=== PATIENT | female | born 1950 | race Caucasian/White ===

== ENCOUNTER 2024-11-29 03:41 | Inpatient (IN) | payer OTHER ==
[2024-11-29] MEDS ORDERED: DIAZEPAM 10 MG/2 ML INJ SYRINGE ONE (04:41)
[2024-11-29 04:48] LABS: Absolute Eosinophils 0.2 K/uL (0-0.5); Absolute Lymphocytes (CBC) 1.4 K/uL (0.7-4.9); Absolute Monocytes 0.7 K/uL (0.1-1.3); Absolute Neutrophil 5.7 K/uL (1.8-8.0); Basophils % 0.5 % (0-1.3); Eosinophils % 1.9 % (0-4.4); Hematocrit 41.7 % (36.0-45.0); Hemoglobin 14.6 g/dL (12.0-15.0); Lymphocytes % 17.6 % (15.3-44.8); MCH 30.5 pg (27.0-35.0); MCHC 34.9 g/dL (32.0-36.0); MCV 87.3 fL (80-100); Monocytes % 9.1 % (3.3-12.3); Neutrophils % 70.9 % (41.7-73.7); Nucleated RBC Absolute Count 0.1 (0-0); Nucleated Red Blood Cells % 0.8 % (0-0); Platelets 189 thou/uL (152-406); RBC Red Blood Cell Count 4.78 M/uL (3.86-4.86); Red Cell Distribution Width 13.6 % (12.1-15.2)
[2024-11-29 05:06] LABS: Anion Gap 8.8 mEq/L (5.0-15.0); Potassium 3.8 mEq/L (3.5-5.1)
[2024-11-29 05:12] LABS: Troponin High Sensitivity 65.3 pg/mL (<58.9)
[2024-11-29] MEDS ORDERED: KETOROLAC 30 MG/ML INJ ONE (05:31)
[2024-11-29 06:17] LABS: Specific Gravity 1.008 (1.005-1.030); Sqamous Epithelial <5 /HPF (None Seen); Urine Bacteria <20 /HPF (<20); Urine Bilirubin NEGATIVE (Negative); Urine Blood Negative (Negative); Urine Clarity Clear (Clear); Urine Color Colorless (Yellow); Urine Culture Reflex Order NOT NEEDED; Urine Glucose NEGATIVE (Negative); Urine Ketones NEGATIVE (Negative); Urine Micro Reflex YN NO BILL MICROSCOPIC; Urine Nitrite NEGATIVE (Negative); Urine Protein NEGATIVE (Negative); Urine RBC <5 /HPF (None Seen); Urine Urobilinogen Normal (Normal); Urine WBC <5 /HPF (<5)
--- NOTE | 2024-11-29 06:56 | RAD REPORT ---
EXAMINATION: CT HEAD WITHOUT CONTRAST CLINICAL INDICATION: Female, 74 years old.ams TECHNIQUE: Axial CT images from the skull base to the vertex without intravenous contrast. Coronal an d sagittal reformatted images were created from the data set. One or more of the following dose reduction techniques were used: Automated exposure control, adjustment of the mA and/or kV according to patient size, and/or iterative reconstruction. Unless otherwise specified, incidental findings do not require dedicated imaging follow-up. [id number]. COMPARISON: 05/20/2020 MRI FINDINGS: INTRACRANIAL: No acute intracranial hemorrhage. No hydrocephalus. No mass effect or midline shift. Mi ld chronic small vessel ischemic changes.Mild cerebral atrophy. VASCULATURE: No visualized abnormalities in the arteries or dural venous sinuses. SCALP/SKULL: No significant soft tissue or osseous abnormalities. SINUSES: The visualized paranasal sinuses and mastoid air cells are predominantly clear. IMPRESSION: No acute intracranial abnormality.
--- NOTE | 2024-11-29 06:59 | ER ---
Nurse's Notes [facility] Name: Yolanda Linda Age: 74 yrs Sex: Female : 1950 Arrival Date: 11/29/2024 Time: 03:41 Bed 7 Private MD: Diagnosis: Troponin Elevation, Increased Spasms Presentation: 11/29 03:50 Chief complaint: Spouse and/or significant other states: loss her balance, has a right vc1 earache, right eye swollen. Chief complaint: Spouse and/or significant other states: She has parkinsons and had the tremors then overnight she started having uncontrollable movement. Coronavirus screen: Client denies travel out of the [place] in the last 14 days. At this time, the client does not indicate any symptoms associated with coronavirus-19. Ebola Screen: Patient negative for fever greater than or equal to 101.5 degrees Fahrenheit, and additional compatible Ebola Virus Disease symptoms Patient denies exposure to infectious person. Patient denies travel to an Ebola-affected area in the 21 days before illness onset. No symptoms or risks identified at this time. Initial Sepsis Screen: Does the patient meet any 2 criteria? No. Patient's initial sepsis screen is negative. Does the patient have a suspected source of infection? No. Patient's initial sepsis screen is negative. Risk Assessment: Do you want to hurt yourself or someone else?. Onset of symptoms was November 28, 2024. 03:50 Method Of Arrival: Ambulatory vc1 03:50 Acuity: JR 3 vc1 Triage Assessment: 09:36 Headache History: Other N/A. General: Appears in no apparent distress. Pain: Quality of iw pain is described as Also complains of no other associated symptoms. Historical: - Allergies: 03:53 Codeine; vc1 - Home Meds: 03:53 methocarbamol 500 mg oral tablet bid [Active]; carbidopa-levodopa 25-100 mg Oral tablet vc1 3 times per day [Active]; Rytary 61.25-245 mg oral capsule, extended release 2 caps 3 times per day [Active]; Pepcid AC 10 mg Oral tablet daily [Active]; - PMHx: 03:53 Parkinson's disease; vc1 - Immunization history:: Client reports having NOT received the Covid vaccine. Flu vaccine is not up to date. - Infectious Disease History:: Denies. - Social history:: Smoking status: Patient denies any tobacco usage or history of. Screenin:57 [facility] ED Fall Risk Assessment (Adult) History of falling in the last 3 months, vc1 including since admission No falls in past 3 months (0 pts) Confusion or Disorientation No (0 pts) Intoxicated or Sedated No (0 pts) Impaired Gait Yes (1 pt) Mobility Assist Device Used Yes (1 pt) Altered Elimination No (0 pt) Score/Fall Risk Level 3 or more points = High Risk Oriented to surroundings, Maintained a safe environment, Educated pt \T\ family on fall prevention, incl call for assistance when getting out of bed, Hourly rounding (assess needs \T\ fall precautionary measures) done, Offered frequent toileting (1:1 observation), Remained with patient while ambulating. Abuse screen: Denies threats or abuse. Nutritional screening: No deficits noted. Tuberculosis screening: No symptoms or risk factors identified. Assessment: 04:15 General: Appears uncomfortable, well groomed, Behavior is cooperative, Sporadic dd2 movements of BUE and head. Pain: Complains of pain in Head, Rt eye and Rt ear Pain does not radiate. Pain currently is 9 out of 10 on a pain scale. Neuro: Warren Agitation-Sedation Scale (RASS): +1 Restless Level of Consciousness is awake, alert, obeys commands, Oriented to person, place, time, situation, Truck Spotter are equal bilaterally Speech is normal, Pupils are PERRLA, Sporadic movements BUE and head. Reports headache in entire increase in spasms to arms . Neuro: Reports dizziness. Cardiovascular: Heart tones S1 S2 present Patient's skin is warm and dry. Respiratory: Airway is patent Respiratory effort is even, unlabored, Respiratory pattern is regular, symmetrical, Breath sounds are clear bilaterally. GI: Abdomen is non-distended, Bowel sounds present X 4 quads. Abd is soft and non tender X 4 quads. Parent/caregiver reports the patient having intolerance of food. : No signs and/or symptoms were reported regarding the genitourinary system. EENT: Reports pain in right eye, Rt ear. Derm: No deficits noted. No signs and/or symptoms reported regarding the dermatologic system. Musculoskeletal: Range of motion: intact in all extremities, sporadic movements to BUE, head Reports increased in spasms BUE and head. 07:37 Reassessment:. General: Appears in no apparent distress. Behavior is calm, cooperative, iw restless. Neuro: Level of Consciousness is awake, alert, obeys commands, Oriented to person, place, time, situation, Truck Spotter are equal bilaterally Moves all extremities. Speech is normal, Reports jerking movements in her extremities . Cardiovascular: Capillary refill < 3 seconds in bilateral fingers Patient's skin is warm and dry. Respiratory: Respiratory effort is even, unlabored, Respiratory pattern is regular, symmetrical. GI: Abdomen is non-distended, Abd is soft and non tender X 4 quads. Derm: Skin is intact, is healthy with good turgor, Skin is pink, warm \T\ dry. normal. Musculoskeletal: Range of motion: intact in all extremities. Vital Signs: 03:50 Weight 81.65 kg; Height 5 ft. 1 in. ; Pain 5/10; vc1 04:00 BP 110 / 93; Pulse 66; Resp 18; Temp 97.2; Pulse Ox 96% ; vc1 05:17 BP 122 / 84; Pulse 66; Resp 16; Pulse Ox 96% on R/A; dd2 07:30 BP 171 / 81; Pulse 64; Resp 18; Temp 97.6; Pulse Ox 97% on R/A; iw 03:50 Body Mass Index 34.01 (81.65 kg, 154.94 cm) vc1 03:50 Pain Scale: Adult vc1 Loretta Coma Score: 04:15 Eye Response: spontaneous(4). Motor Response: obeys commands(6). Verbal Response: dd2 oriented(5). Total: 15. ED Course: 03:44 Patient arrived in ED. [id number] 03:53 Triage completed. vc1 03:57 Arm band placed on left wrist. vc1 03:58 Lew Jane MD is Attending Physician. ec2 04:15 Patient has correct armband on for positive identification. Bed in low position. Call dd2 light in reach. Side rails up X2. Seizure precautions initiated. Client placed on continuous cardiac and pulse oximetry monitoring. NIBP monitoring applied. auto job estimator on. Door closed. Noise minimized. Warm blanket given. Pillow given. Verbal reassurance given. 04:36 No provider procedures requiring assistance completed. Initial lab(s) drawn, by me, dd2 sent to lab. EKG done, by ED staff, reviewed by Lew Jane MD. Inserted saline lock: 20 gauge in right antecubital area, using aseptic technique. Blood collected. Flushed with 10 mL NS. Patient maintains SpO2 saturation greater than 95% on room air. 04:51 CT Head Brain wo Cont In Process Unspecified. EDMS 05:05 MIKAEL CUETO, RN is Primary Nurse. dd2 06:58 Sina Rebolledo MD is Hospitalizing Provider. ec2 06:58 Report given to Angelika RN's. bm8 07:39 Primary Nurse role handed off by MIKAEL CUETO RN iw 07:39 Dayna Weeks RN is Primary Nurse. iw 07:39 Client placed on continuous cardiac and pulse oximetry monitoring. NIBP monitoring iw applied. auto job estimator on. Lights dimmed. Warm blanket given. Pillow given. Head of bed elevated. 08:08 Repeat lab(s) drawn. by me, sent to lab. em1 Administered Medications: 04:44 Drug: Diazepam IVP 5 mg IVP once Route: IVP; Site: right antecubital; dd2 04:59 Follow up: Response: No adverse reaction dd2 05:32 Drug: Ketorolac IVP 15 mg IVP once Route: IVP; Site: right antecubital; dd2 05:47 Follow up: Response: No adverse reaction dd2 Medication: 04:15 VIS not applicable for this client. dd2 Outcome: 06:58 Decision to Hospitalize by Provider. ec2 09:35 Admitted to Med/surg accompanied by tech, via stretcher, with chart, Report called to enoch Nicholas RN 09:35 Condition: good 09:35 Discharge instructions given to patient, family, Instructed on the need for admit, Demonstrated understanding of instructions, 09:36 Patient left the ED. iw Signatures: Dispatcher [employer] EDMI Dayna Weeks, Lenny Kathleen RN em1 Vera Rodriguez6 Sridevi Paredes RN RN 1 Lew Jane MD MD ec2 Israel Anthony, PHAN RN bm8 MIKAEL CUETO RN RN dd2 Corrections: (The following items were deleted from the chart) 03:57 03:53 PMHx: High Cholesterol; vc1 vc1 03:57 03:53 PMHx: Hypertension; vc1 vc1 05:17 04:15 Pain: Complains of pain in Head, eye and Lt ear Pain does not radiate. Pain dd2 currently is 9 out of 10 on a pain scale. dd2 05:17 04:15 EENT: Reports pain in right eye, left ear and left eye dd2 dd2
--- NOTE | 2024-11-29 06:59 | EDPHYS ---
Physician Documentation [facility] Name: Yolanda Linda Age: 74 yrs Sex: Female : 1950 Arrival Date: 11/29/2024 Time: 03:41 Bed 7 Private MD: ED Physician Lew Jane HPI: 11/29 04:15 This 74 yrs old Female presents to ER via Ambulatory with complaints of ec2 increased spasms. 04:15 Patient arrives today for evaluation of increased tremors and neuro excitement. Patient ec2 with history of parkinsonism has baseline tremors and irregular movements, has been having increased in her regular movements which is what prompted evaluation. No recent falls injuries or trauma. Patient reports some increased urinary frequency. No diarrhea symptoms. Denies any cough and cold symptoms.. Historical: - Allergies: 03:53 Codeine; vc1 - Home Meds: 03:53 methocarbamol 500 mg oral tablet bid [Active]; carbidopa-levodopa 25-100 mg Oral tablet vc1 3 times per day [Active]; Rytary 61.25-245 mg oral capsule, extended release 2 caps 3 times per day [Active]; Pepcid AC 10 mg Oral tablet daily [Active]; - PMHx: 03:53 Parkinson's disease; vc1 - Immunization history:: Client reports having NOT received the Covid vaccine. Flu vaccine is not up to date. - Infectious Disease History:: Denies. - Social history:: Smoking status: Patient denies any tobacco usage or history of. ROS: 04:33 Constitutional: as per hpi ec2 Exam: 04:16 Constitutional: GEN: NAD Head: atraumatic Eyes: EOMI Ears: External ears are ec2 normal. CV: regular rate LUNGS: no respiratory distress ABD: non-distended SKIN: no evidence of rashes MSK: no evidence of trauma. Neuro: Irregular choreiform movements noted. Vital Signs: 03:50 Weight 81.65 kg; Height 5 ft. 1 in. ; Pain 5/10; vc1 04:00 BP 110 / 93; Pulse 66; Resp 18; Temp 97.2; Pulse Ox 96% ; vc1 05:17 BP 122 / 84; Pulse 66; Resp 16; Pulse Ox 96% on R/A; dd2 07:30 BP 171 / 81; Pulse 64; Resp 18; Temp 97.6; Pulse Ox 97% on R/A; iw 03:50 Body Mass Index 34.01 (81.65 kg, 154.94 cm) vc1 03:50 Pain Scale: Adult vc1 Loretta Coma Score: 04:15 Eye Response: spontaneous(4). Motor Response: obeys commands(6). Verbal Response: dd2 oriented(5). Total: 15. MDM: 04:09 Medical Screening Exam initiated ec2 04:16 Data reviewed: vital signs, nurses notes. ED course: Patient arrives today for ec2 increasing irregular movements. Examination yields frequent irregular movements is otherwise in no acute distress. Will obtain lab work, check imaging, urine studies. Differential clued UTI, electrolyte disturbances, anemia, intracranial mass. Additionally considered progression of patient's known parkinsonism.. 04:33 ED course: EKG independently reviewed and interpreted by me, motion artifact ec2 appreciated, normal sinus rhythm, rate of 64, no acute ST segment elevations, intervals are nonactionable.. 06:56 ED course: CT scan of the head shows no acute intracranial normality. . ec2 06:57 ED course: Patient with newly elevated troponin, increased restlessness and spasticity, ec2 will admit for further cardiac workup. Discussed with hospitalist, pending admission.. 11/29 04:12 Order name: Basic Metabolic Panel; Complete Time: 05:26 ec2 11/29 04:12 Order name: CBC with Diff; Complete Time: 05:10 ec2 11/29 04:12 Order name: Troponin HS; Complete Time: 05:26 ec2 11/29 04:12 Order name: UAM; Complete Time: 06:20 ec2 11/29 04:17 Order name: Glucose, Ancillary Testing; Complete Time: 04:46 EDMS 11/29 07:53 Order name: Urinalysis w/ reflexes EDMS 11/29 07:53 Order name: Basic Metabolic Panel EDMS 11/29 07:53 Order name: Basic Metabolic Panel EDMS 11/29 07:53 Order name: Basic Metabolic Panel EDMS 11/29 07:53 Order name: Basic Metabolic Panel EDMS 11/29 07:53 Order name: CBC with Automated Diff EDMS 11/29 07:53 Order name: CBC with Automated Diff EDMS 11/29 07:53 Order name: CBC with Automated Diff EDMS 11/29 07:53 Order name: CBC with Automated Diff EDMS 11/29 07:53 Order name: Magnesium EDMS 11/29 07:53 Order name: Magnesium EDMS 11/29 07:53 Order name: Magnesium EDMS 11/29 07:53 Order name: Magnesium EDMS 11/29 07:53 Order name: NT PRO-BNP EDMS 11/29 07:53 Order name: NT PRO-BNP EDMS 11/29 07:53 Order name: Troponin High Sensitivity EDMS 11/29 07:53 Order name: Troponin High Sensitivity EDMS 11/29 07:53 Order name: Troponin High Sensitivity EDMS 11/29 07:53 Order name: Troponin High Sensitivity EDMS 11/29 04:12 Order name: CT Head Brain wo Cont; Complete Time: 06:56 ec2 11/29 04:12 Order name: Cardiac monitoring; Complete Time: 04:30 ec2 11/29 04:12 Order name: EKG - Nurse/Tech; Complete Time: 04:31 ec2 11/29 04:12 Order name: IV Saline Lock; Complete Time: 04:35 ec2 11/29 04:12 Order name: Labs collected and sent; Complete Time: 04:35 ec2 11/29 04:12 Order name: O2 Per Protocol; Complete Time: 04:31 ec2 11/29 04:12 Order name: O2 Sat Monitoring; Complete Time: 04:31 ec2 11/29 04:12 Order name: Cath; Complete Time: 05:29 ec2 Administered Medications: 04:44 Drug: Diazepam IVP 5 mg IVP once Route: IVP; Site: right antecubital; dd2 04:59 Follow up: Response: No adverse reaction dd2 05:32 Drug: Ketorolac IVP 15 mg IVP once Route: IVP; Site: right antecubital; dd2 05:47 Follow up: Response: No adverse reaction dd2 Disposition Summary: 11/29/24 06:58 Hospitalization Ordered Notes: Hospitalization Status: Inpatient Admission ec2 Provider: Sina Rebolledo ec2 Location: Telemetry/MedSurg (Inpatient) ec2 Condition: Stable ec2 Problem: an ongoing problem ec2 Symptoms: are unchanged ec2 Bed/Room Type: Standard ec2 Room Assignment: 411(11/29/24 09:02) iw Diagnosis - Troponin Elevation, Increased Spasms ec2 Forms: - Medication Reconciliation Form ec2 - SBAR form ec2 - Leadership Thank You Letter ec2 Signatures: Dispatcher [employer] Dayna Li, PHAN RN iw Lisa Sanchez Vanessa, RN RN vc1 Lew Jane MD MD ec2 MIKAEL CUETO RN RN dd2 Corrections: (The following items were deleted from the chart) 03:57 03:53 PMHx: High Cholesterol; vc1 vc1 03:57 03:53 PMHx: Hypertension; vc1 vc1 04:13 04:13 Head Brain Wo Cont+CT.RAD.BRZ ordered. EDMS EDMS 08:46 06:58 ec2 eb 09:02 08:46 414 eb iw
--- NOTE | 2024-11-29 07:48 | P.HP ---
Certification for Inpatient Patient admitted to: Inpatient With expected LOS: <2 Midnights <Kortney Lora - Last Filed: 11/29/24 09:14> Patient History Date of Service: 11/29/24 Reason for admission: Elevated troponin, Parkinson's with increased tremor History of Present Illness: 74-year-old female with a past medical history of, Parkinson's, hypertension, hyperlipidemia, PCI x 3, nephrectomy, presents to the emergency room with increased tremors. She reports visiting family from [place], has had increased tremors, worse over the last 24 hours. She reports medication compliance, reports chronic right shoulder pain, she reports difficulty sleeping that is chronic. She reports associated unsteady gait. Normally independent with a cane as baseline. She reported yesterday she had mild right jaw pain, she denied chest pain, shortness of breath, had noted elevated troponin 65.3, 64.3, on ER evaluation ER EKG rate [address] changes. she denies fall, fever, recent infection, chest pain, abdominal pain, fever, nausea vomiting, dizziness plan to admit for elevated troponin, Parkinson's with increase tremors unsteady gait with neurology to consult. - Past Medical/Surgical History Diabetic: No -: Parkinson's -: Hypertension -: Hyperlipidemia -: left nephrectomy -: append -: left hand sx - Social History Smoking Status: Never smoker Alcohol use: No CD- Drugs: No Caffeine use: Yes <Kortney Lora - Last Filed: 11/29/24 09:14> Date of Service: 11/29/24 <Sina Rebolledo - Last Filed: 11/30/24 00:57> Allergies codeine [Codeine] Allergy (Mild, Verified 02/18/12 16:39) Nausea/Vomiting Home Medications: Carbidopa/Levodopa [Carbidopa-Levo ER 25-100 Tab] 1 tab PO TID 11/29/24 Carbidopa/Levodopa [Rytary ER 61.25 mg-245 mg Cap] 2 tab PO TID 11/29/24 Famotidine/Ca Carb/Mag Hydrox [Pepcid Complete Tablet Chew] 1 tab PO DAILY 11/29/24 methocarbamoL [Methocarbamol] 1 tab PO BID 11/29/24 Review of Systems 10-point ROS is otherwise unremarkable <Kortney Lora - Last Filed: 11/29/24 09:14> Physical Examination - Physical Exam General: Alert, In no apparent distress, Oriented x3 HEENT: Atraumatic, Normocephalic, PERRLA Neck: 2+ carotid pulse no bruit, JVD not distended Respiratory: Clear to auscultation bilaterally, Normal air movement Cardiovascular: Normal pulses, Regular rate/rhythm, Normal S1 S2 Capillary refill: <2 Seconds Gastrointestinal: Normal bowel sounds, Soft and benign Musculoskeletal: No swelling, No contractures, Other (Right shoulder tenderness to palpitation) Integumentary: No breakdown, No significant lesion Neurological: Normal speech, Other (Parkinsonian tremors,), Abnormal gait, Abnormal strength - Studies Laboratory Data (last 24 hrs) 11/29/24 11/29/24 04:30 04:30 WBC 8.10 Hgb 14.6 Hct 41.7 Plt Count 189 Sodium 141 Potassium 3.8 BUN 16 Creatinine 0.83 Glucose 101 <Kortney Lora - Last Filed: 11/29/24 09:14> - Studies Laboratory Data (last 24 hrs) 11/29/24 11/29/24 04:30 04:30 WBC 8.10 Hgb 14.6 Hct 41.7 Plt Count 189 Sodium 141 Potassium 3.8 BUN 16 Creatinine 0.83 Glucose 101 <Sina Rebolledo - Last Filed: 11/30/24 00:57> Assessment and Plan - Problems (Diagnosis) (1) Elevated troponin Current Visit: Yes Status: Acute (2) Parkinsonian tremor Current Visit: Yes Status: Acute (3) Muscle spasticity Current Visit: Yes Status: Acute (4) Gait disturbance Current Visit: Yes Status: Acute (5) Right shoulder pain Current Visit: Yes Status: Acute Qualifiers: Chronicity: acute Qualified Code(s): M25.511 - Pain in right shoulder (6) HTN (hypertension) Current Visit: No Status: Acute Qualifiers: Hypertension type: essential hypertension (7) Hyperlipidemia Current Visit: No Status: Acute Qualifiers: Hyperlipidemia type: unspecified Qualified Code(s): E78.5 - Hyperlipidemia, unspecified - Plan Assessment plan Parkinson's with tremors Unsteady gait Sleep disturbance Neurology consult, padded rails Resume home Parkinson's meds, sleep aid PT eval for unsteady gait Fall precaution Soft diet Elevated troponin Hypertension Hyperlipidemia History of PCI Telemetry Resume home meds Trend cardiac enzymes Chest x-ray, shoulder x-ray UA, trend cultures Right shoulder pain Shoulder x-ray, Lidocaine patch Full code DVT Lovenox Diet soft Disposition Home with home health Discharge Plan: Home - Advance Directives Does patient have a Living Will: No Does patient have a Durable POA for Healthcare: No - Code Status/Comfort Care Code Status: Full Code Critical Care: No Time Spent Managing Pts Care (In Minutes): 55 <Kortney Lora - Last Filed: 11/29/24 09:14> Date of Service: 11/29/24 Patient was seen and examined. Events of the last 24 hours have been noted. Spoke with with YURY regarding patient's clinical picture after evaluating and examining the patient independently. I performed a substantial part of the MDM during this patient's care today. I personally made or approved the documented management plan and acknowledge its risk of complications. I agree with the findings and documentation provided in the YURY's notes. Patient is a 74-year-old female who is with her visiting from [facility]. Patient has a Parkinson's physician in [facility]. Patient was doing well and uses a cane to get around. However, patient was not able to get out of bed and was really weak. Patient's called EMS and patient was brought into the ER. Patient looks to be doing better. She feels a little better. Will get physical therapy evaluation. Neurology was consulted. Increase dose of carbo levodopa. Will check for additional etiologies of myopathy. <Sina Rebolledo - Last Filed: 11/30/24 00:57>
[2024-11-29] MEDS ORDERED: ONDANSETRON 4 MG/2 ML VIAL IV PRN (07:49)
[2024-11-29] MEDS ORDERED: ALPRAZOLAM 0.25 MG TABLET PO PRN (07:49)
[2024-11-29] MEDS ORDERED: ACETAMINOPHEN 500 MG TAB PO PRN (07:49)
[2024-11-29] MEDS ORDERED: CARBIDOPA/LEVODOPA 25/100 TAB PO SCH (09:00)
[2024-11-29] MEDS ORDERED: METOPROLOL TAR 25 MG TAB PO SCH (09:00)
[2024-11-29 09:47] VITALS: O2SAT 97
[2024-11-29] MEDS: LIDOCAINE 4% PATCH TOP SCH (10:57)
[2024-11-29] MEDS: CARBIDOPA/LEVODOPA 25/100 TAB PO SCH (10:57)
[2024-11-29 11:15] VITALS: BMI 34.0
[2024-11-29] MEDS ORDERED: MAGNESIUM CITRATE 300 ML BOT PO PRN (15:06)
[2024-11-29] MEDS: METHYLPREDNISOLONE 125 MG INJ IV ONE ×2 (15:07→16:24)
[2024-11-29] MEDS: ENOXAPARIN 40 MG/0.4 ML SQ SCH (16:24)
[2024-11-29] MEDS: LEVODOPA PO SCH (16:40)
[2024-11-29] MEDS: CARBIDOPA PO SCH (16:40)
--- NOTE | 2024-11-29 16:47 | RAD REPORT ---
EXAMINATION: Shoulder Right 2+ Views CLINICAL INDICATION: Female, 74 years old. right shoulder pain RIGHT COMPARISON: No prior exam. FINDINGS: No acute fracture. High riding right humeral head may indicate rotator cuff pathology. Mild right AC joint degenerative changes and a minimal joint degenerative changes. Other: n/a IMPRESSION: No acute osseous abnormality. Chronic changes including high riding humeral head suggesting rotator c uff pathology.
--- NOTE | 2024-11-29 16:47 | RAD REPORT ---
EXAM: Chest Pa And Lat (2 Views) HISTORY: elev trop COMPARISON: 02/16/2016 FINDINGS: LUNGS/PLEURA: The lungs are clear. No pleural effusions or pneumothorax. No pulmonary edema. MEDIASTINUM: The mediastinal silhouette is within normal limits. CARDIAC: The cardiac silhouette is within normal limits. UPPER ABDOMEN: No significant abnormality. BONES: No acute abnormality. LINES/TUBES/OTHER: N/A IMPRESSION: No evidence of acute cardiopulmonary disease.
[2024-11-29] MEDS: ATORVASTATIN 20 MG TAB PO SCH (20:41)
[2024-11-30 06:30] LABS: AST/SGOT 19 U/L (15-37); Albumin 3.6 g/dL (3.4-5.0); Albumin/Globulin Ratio 0.9 (1.1-1.8); Alkaline Phosphatase 86 U/L (45-117); Anion Gap 10.9 mEq/L (5.0-15.0); BUN Blood Urea Nitrogen 17 mg/dL (7-18); Bicarbonate 24 mEq/L (21-32); Bilirubin Total 0.7 mg/dL (0.2-1.0); C-Reactive Protein 9.92 mg/L (<3.00); Globulin 4.1 g/dL (2.3-3.5); Glomerular Filtration Rate 68 ml/min (=/>90); Glucose Level 129 mg/dL (74-106); Magnesium 2.3 mg/dL (1.6-2.4); NT PRO-BNP 417 pg/mL (<450); Phosphorus 3.4 mg/dL (2.5-4.9); Potassium 3.9 mEq/L (3.5-5.1); Protein, Total 7.7 g/dL (6.4-8.2); Sodium Level 138 mEq/L (136-145)
[2024-11-30 06:33] LABS: ALT/SGPT < 14 U/L (13-56)
[2024-11-30 07:29] LABS: Absolute Eosinophils 0.1 K/uL (0-0.5); Absolute Lymphocytes (CBC) 1.1 K/uL (0.7-4.9); Absolute Monocytes 0.3 K/uL (0.1-1.3); Absolute Neutrophil 10.9 K/uL (1.8-8.0); Basophils % 0.2 % (0-1.3); Eosinophils % 0.7 % (0-4.4); Hematocrit 48.4 % (36.0-45.0); Hemoglobin 16.2 g/dL (12.0-15.0); Lymphocytes % 8.6 % (15.3-44.8); MCH 29.6 pg (27.0-35.0); MCHC 33.4 g/dL (32.0-36.0); MCV 88.6 fL (80-100); MPV 8.2 fL (7.6-11.3); Monocytes % 2.6 % (3.3-12.3); Neutrophils % 87.9 % (41.7-73.7); Nucleated Red Blood Cells % 0.1 % (0-0); Platelets 216 thou/uL (152-406); RBC Red Blood Cell Count 5.46 M/uL (3.86-4.86); Red Cell Distribution Width 13.6 % (12.1-15.2)
[2024-11-30 09:03] LABS: Creatine Phosphokinase 168 U/L (26-192)
[2024-11-30] MEDS: POTASSIUM CL SA 10 MEQ TAB PO ONE (09:59)
[2024-11-30 10:19] LABS: Blood Morphology Comment NOT SEEN (NOT SEEN); Platelet Estimate ADEQ; White Blood Cell Scan OK (OK)
--- NOTE | 2024-11-30 11:11 | EKG ---
Test Date: 2024-11-29 Test Time: 04:28:04 Batting Machine Operator Insulation: ARCHIE MEASUREMENT RESULTS: Intervals: Rate: 64 NM: 192 QRSD: 80 QT: 442 QTc: 455 [place]: P: 36 NM: 192 QRS: 55 T: 67 INTERPRETIVE STATEMENTS: Normal sinus rhythm Cannot rule out Anterior infarct, age undetermined Abnormal ECG Compared to ECG 02/17/2016 07:15:30 Myocardial infarct finding now present First degree AV block no longer present Electronically Signed On 11-30-24 11:09:17 PERSONAL INJURY PARALEGAL by Alex Maza
[2024-11-30 12:49] VITALS: BP 141/67; TEMP 97.6
[2024-11-30] MEDS: CARBIDOPA/LEVODOPA 25/100 TAB PO SCH (13:41)
--- NOTE | 2024-11-30 14:16 | P.DS ---
Admission Date: 11/29/24 Discharge Date: 11/30/24 Disposition: ROUTINE DISCHARGE Discharge Condition: GOOD Reason for Admission: Elevated troponin, Parkinson's with increased tremor Brief History of Present Illness: 74-year-old female with a past medical history of, Parkinson's, hypertension, hyperlipidemia, coronary artery disease status post PCI x 3, nephrectomy, presents to the emergency room with increased tremors. She reports visiting family from [place], has had increased tremors, worse over the last 24 hours. She reports medication compliance, reports chronic right shoulder pain, she reports difficulty sleeping that is chronic. She reports associated unsteady gait. Normally independent with a cane as baseline. She reported yesterday she had mild right jaw pain, she denied chest pain, shortness of breath, had noted elevated troponin 65.3, 64.3, on ER evaluation ER EKG rate [address] changes. she denies fall, fever, recent infection, chest pain, abdominal pain, fever, nausea vomiting, dizziness plan to admit for elevated troponin, Parkinson's with increase tremors unsteady gait with neurology to consult. Hospital Course: Her hospital course was uneventful, mildly elevated troponin was trending down and normalized the next day, telemetry overnight shows normal sinus rhythm, no tachycardia or bradycardia arrhythmia. Neurologist, Dr. Frye saw the patient and recommended discontinuation of methocarbamol and continue current carbidopa / levodopa and follow-up with his clinic after discharge. She was sent home in stable condition. Discharge diagnosis #1 nonspecific elevated troponin #2 advanced Parkinson's disease #3 chronic right shoulder pain secondary to rotator cuff syndrome #4 labile hypertension associated with #2 Vital Signs/Physical Exam: Temp Pulse Resp BP Pulse Ox 97.6 F 77 20 141/67 H 96 11/30/24 12:55 11/30/24 12:55 11/30/24 12:55 11/30/24 12:55 11/30/24 12:55 Laboratory Data at Discharge: WBC 12.40 thou/uL (4.3-10.9) H 11/30/24 07:10 Hgb 16.2 g/dL (12.0-15.0) H D 11/30/24 07:10 Hct 48.4 % (36.0-45.0) H 11/30/24 07:10 Plt Count 216 thou/uL (152-406) 11/30/24 07:10 Sodium 138 mEq/L (136-145) 11/30/24 05:52 Potassium 3.9 mEq/L (3.5-5.1) 11/30/24 05:52 BUN 17 mg/dL (7-18) 11/30/24 05:52 Creatinine 0.89 mg/dL (0.55-1.02) 11/30/24 05:52 Glucose 129 mg/dL (74-106) H 11/30/24 05:52 Phosphorus 3.4 mg/dL (2.5-4.9) 11/30/24 05:52 Magnesium 2.3 mg/dL (1.6-2.4) 11/30/24 05:52 Total Bilirubin 0.7 mg/dL (0.2-1.0) 11/30/24 05:52 AST 19 U/L (15-37) 11/30/24 05:52 ALT < 14 U/L (13-56) 11/30/24 05:52 Alkaline Phosphatase 86 U/L (45-117) 11/30/24 05:52 Home Medications: Carbidopa/Levodopa [Carbidopa-Levo ER 25-100 Tab] 1 tab PO TID 11/29/24 Carbidopa/Levodopa [Rytary ER 61.25 mg-245 mg Cap] 2 tab PO TID 11/29/24 Famotidine/Ca Carb/Mag Hydrox [Pepcid Complete Tablet Chew] 1 tab PO DAILY 11/29/24 Lidocaine 4% Patch [Lidoderm 5% Patch*] 1 patch TOP DAILY PRN #10 pat 11/30/24 New Medications: Lidocaine 4% Patch [Lidoderm 5% Patch*] 1 patch TOP DAILY PRN #10 pat PRN Reason: Pain Scale 5-7 (Moderate) Diet: AHA Activity: Ad omid Followup: JAZMIN WU [Primary Care Provider] - Brian Frye MD [ASSOCIATE-ACTIVE - CAN ADMIT] -
--- NOTE | 2024-11-30 19:41 | CON ---
Chief Complaint: Consultation called because of excessive movements described as jerks. History Of Present Illness: Ms. Linda is a 74-year-old patient with a history of Parkinson's dise ase, reportedly diagnosed out of town by a neurologist 3 years ago. She said her symptoms began with a right-sided tremor, a right lower extremity tremor, and progressed in terms of difficulty with her balance, gait coordination. She had difficulty with swallowing and constipation and subsequently tr emors spread to the left side. Her notes that she had a full workup including brain MRI and a Amalia scan. She was eventually put on the regimen of carbidopa/levodopa 25/100 three times daily and Rytary also 3 times daily 61.25 mg-245 three times daily. She said that symptoms were fairly well c ontrolled and she did okay, managing her balance, gait coordination of activities of daily living. S he was, a few days ago, started on methocarbamol, a muscle relaxant, and her noted she had mo re kind of flailing movements of the extremities, difficulty with ability to stand and ambulate. Als o, she had been more drowsy and sleepy as well typically and prior to the change of medication, she w as at baseline, mobilizing with little tremor, ability to ambulate without significant difficulty and did not fall. Since her hospitalization, which is actually a day and a half ago, the methocarbamol was discontinued and patient's said the following day, she seemed to do lot better today and she is back to baseline without the extra flailing movements. Past Medical History: Hypertension, dyslipidemia, left nephrectomy. She has had a single kidney for 4 decades and she has had appendectomy and left hand surgery, and of course, Parkinson's disease. Social History: No alcohol, tobacco, or IV drug use. She does drink caffeinated beverages. Review of Systems: No recent fevers, chills, nausea, vomiting, myalgias, arthralgias, rash, headache, or weight change. No other findings on systems review. Family History: Noncontributory. Allergies: CODEINE. Physical Examination: Vital Signs: Blood pressure 141/67, pulse 77, respiratory rate of 18, temperature 97.6. Oxygen satu ration 96%. Weight 180 pounds. Height 5 feet 1 inch, BMI 34.0. General: Ms. Linda is sitting in a chair beside bed. Her also in the chair in the opposi te side of the bed. HEENT: She is normocephalic, atraumatic. Sclerae anicteric. Oropharynx pink and moist. Neck: Supple. Chest: Clear. Heart: Regular. Extremities: No significant edema, cyanosis, or clubbing. Neurological: She is alert and oriented to situation, place, and person. She follows commands appro priately. Cranial nerves showed no focal deficits. Mild masked facies noted. Mild bradykinesia not ed. No obvious tremor, at this point. Some mild increased rigidity in upper and lower extremities. Motor exam is symmetric and 5/5 sensation, mild stocking-glove loss. Depressed reflexes in upper an d lower extremities. Her cerebellar coordination exam is intact. Gait, she has small strides, decre ased arm swing. Mild festination in terms of gait and en bloc turning very subtle. Laboratory Studies: On the , her complete blood count differential was completely normal. She t maira had white blood cell count increased from 8.1 on the to 12.4. The findings are all higher and suggestive of dehydration as her RBCs went from 4.78 to 5.46, hemoglobin 14.6 up to 16.2, and hem atocrit 41.7 to 48.4. MCV increased from 87.3 to 88.6, and platelets increased from 189 to 216. Not e, neutrophils increased from 70.9 to 87.9, and absolute neutrophils increased from 5.7 to 10.9. Oth erwise, the GFR down to 68 from 73. Glucose increased to 179 from 141. C-reactive protein is elevat ed at 9.92. Her troponins on the was 65.3 at 0430, and at 0806 64.5, and at 2257 35.6 and today at 0552 26.7, it is back to normal. Urinalysis completely normal. Findings do suggest that she had [id number] myocardial infarction, and EKG did not show ST-segment changes. Her shoulder x-ray o n the right shows no osseous abnormalities. Chronic changes including right high-riding humeral head suggestive of rotator cuff pathology. She had a CT scan of her head done on 11/29, and the study sh owed no acute intracranial abnormalities. No hydrocephalus, no intracranial hemorrhage, and no mass effect. Assessment And Plan: Ms. Linda is a 74-year-old patient who has Parkinson's disease and likely me thocarbamol accentuated effects of carbidopa/levodopa causing extra flailing movements or dyskinetic movements. Her baseline has now returned after stopping methocarbamol. Plan: She will continue Sinemet 25/100 magnesium citrate 300 mL daily for constipation, Z ofran 4 mg every 6 hours as needed for nausea, Lipitor 20 mg at bedtime. She has Xanax 0.25 mg at be dtime for anxiety, and Tylenol Extra Strength 500 mg every 4 hours as needed. The patient is from [facility], but plans to move into the area. Her family is here buying household land and she wants t o be followed up in this clinic and she may be discharged to home and follow up in clinic in a month or 2. ISH/CHUCK Voice ID: [id number] Report ID: [id number]
== END 2024-11-30 15:30 | disposition home or self-care (01) | DRG 57 ==
LOC: ER 03:41 → ERHOLD 07:48 → 4TH 09:01
PROVIDERS: ADMIT Hospitalist; ATTEND Internal Medicine
DX: G21.19 Other drug induced secondary parkinsonism (principal); I10 Essential (primary) hypertension; E78.5 Hyperlipidemia, unspecified; E86.0 Dehydration; K59.00 Constipation, unspecified; F41.9 Anxiety disorder, unspecified; G89.29 Other chronic pain; M62.838 Other muscle spasm; M75.101 Unspecified rotator cuff tear or rupture of right shoulder, not specified as traumatic; D72.829 Elevated white blood cell count, unspecified; T42.8X5A Adverse effect of antiparkinsonism drugs and other central muscle-tone depressants, initial encounter; R26.9 Unspecified abnormalities of gait and mobility; R79.89 Other specified abnormal findings of blood chemistry; Z90.5 Acquired absence of kidney; Z88.5 Allergy status to narcotic agent; Z79.02 Long term (current) use of antithrombotics/antiplatelets; Z90.49 Acquired absence of other specified parts of digestive tract; Z28.310 Unvaccinated for COVID-19; Z79.899 Other long term (current) drug therapy
CPT/HCPCS: 36415; 70450; 71046; 80048; 80053; 81001; 82550; 82947; 83735; 83880; 84100; 84484; 85025; 85379; 86140; 93005; 96374; 96375; 97116; 97161; 99285; J1650; J2003; J2919; J3360